=== PATIENT | female | born 1970 ===

== ENCOUNTER → 2018-05-02 21:02 | Outpatient (REF) | payer OTHER, SELFPAY ==
[2018-05-02 21:36] LABS: Add Manual Diff / Slide Review NO; Basophils Percent Auto 1.2 % (0-2); Eosinophils Percent Auto 2.8 % (2-4); Hematocrit 38.3 % (36-46); Lymphocytes Percent Auto 27.5 % (25-40); Mean Corpuscular HGB Conc 33.9 % (30-36); Mean Corpuscular Hemoglobin 29.6 PG (26-34); Mean Corpuscular Volume 87.4 fL (80-100); Monocytes Percent Auto 10.1 % (3-14); Neutrophils Absolute Auto 3300 /uL (3000-5900); Neutrophils Percent Auto 58.4 % (50-75); Platelet Count 298 X10^3/uL (150-400); Red Blood Cell Count 4.38 X10^6/uL (4.0-5.2); Red Cell Distribution Width 12.9 % (11.6-14.8); White Blood Cell Count 5.7 X10^3/uL (4.5-11.0)
[2018-05-02 22:22] LABS: Alanine Aminotransferase 44 IU/L (9-52); Albumin 4.1 g/dL (3.5-5.0); Albumin Globulin Ratio 1.5 (1.0-2.8); Alkaline Phosphatase 49 U/L (38-126); Aspartate Aminotransferase 35 IU/L (14-36); BUN Creatinine Ratio 16.7 (6-22); Bilirubin Total 0.4 mg/dL (0.2-1.3); Blood Urea Nitrogen 10 mg/dL (7-17); Calcium 9.6 mg/dL (8.4-10.2); Carbon Dioxide 27 mmol/L (22-32); Chloride 103 mmol/L (98-107); Estimated Glomerular Filt Rate > 60.0 mL/min (>60); Globulin 2.7 g/dL (1.7-4.1); Glucose 76 mg/dL (70-100); HEMOLYSIS < 15 (0-50); Potassium 4.2 mmol/L (3.4-5.1); Sodium 142 mmol/L (137-145); Total Protein 6.8 g/dL (6.3-8.2)
[2018-05-02 22:56] LABS: Ferritin 38.8 ng/mL (6.27-137)
[2018-05-02 23:30] LABS: Free T4, Direct Thyroxine 1.18 ng/dL (0.78-2.19)
[2018-05-02 23:44] LABS: Thyroid Stimulating Hormone 0.85 uIU/mL (0.47-4.68)
[2018-05-05 15:29] LABS: Estradiol 202 pg/mL
[2018-05-05 15:42] LABS: Progesterone < 0.5 ng/mL
[2018-05-05 15:49] LABS: Dehydroepiandrosterone Sulfate 37 mcg/dL (19-231)
[2018-05-06 15:00] LABS: Estrogen 445.9 pg/mL
[2018-05-07 14:13] LABS: Testosterone Free 2.8 pg/mL (0.1-6.4); Testosterone Total 29 ng/dL (2-45)
== END ==
LOC: LAB 21:02
PROVIDERS: Visit Provider Family Medicine
DX: N95.1 Menopausal and female climacteric states (principal); N95.9 Unspecified menopausal and perimenopausal disorder; M25.50 Pain in unspecified joint; R63.5 Abnormal weight gain; L65.9 Nonscarring hair loss, unspecified
CPT/HCPCS: 80053; 82627; 82670; 82672; 82728; 83001; 84144; 84402; 84403; 84439; 84443; 85025

== ENCOUNTER → 2018-05-15 21:15 | Outpatient (REF) | payer OTHER, SELFPAY ==
[2018-05-15 22:34] LABS: Uric Acid 4.2 mg/dL (2.5-6.2)
[2018-05-15 23:27] LABS: Erythrocyte Sedimentation Rate 4 MM/HR (0-20)
[2018-05-16 02:31] LABS: C-Reactive Protein Quant < 0.5 mg/dL (<1.0)
[2018-05-16 09:48] LABS: Rheumatoid Factor < 8.6 IU/mL (<12.0)
[2018-05-18 15:58] LABS: CCP Antibody (IgG) < 16 Units (< 20)
[2018-05-18 20:20] LABS: ANA Pattern Speckled; ANA Screen, IFA Positive (Negative); ANA Titer 1:40 titer (<1:40)
== END ==
LOC: LAB 21:15
PROVIDERS: Visit Provider Family Medicine
DX: M25.50 Pain in unspecified joint (principal); R53.83 Other fatigue
CPT/HCPCS: 83516; 84550; 85651; 86038; 86140; 86382; 86430